=== PATIENT | female | born 1945 | race Caucasian/White ===

== ENCOUNTER 2016-06-12 14:24 | Inpatient (IN) | payer MEDICARE, MEDICAID ==
[~2016-06-12] VITALS: Ht 162.6 cm; Wt 62.1 kg
[~2016-06-12 14:24] MED LIST changes: -ACET325T38 PO; -ALBU2.5V4 NEB; -ALEN70TA47 PO; -CA C1TAB80 PO; -CARB15DR87 EACH EAR; -CHLO473M4 MM; -CLON0.5T3 PO; -CLON1TAB3 PO; -DOCU-143 PO; -GUAI480S5 PO; -HYDR-3729 PO; -HYDR28CR45 TP; -IBUP-30 PO; -LACT20SO2 PO; -LOPE-134 PO; -LORA10TA76 PO; -MAGN400O7 PO; -MENT1LOZ4 MM; -MIRT30TA6 PO; -MULT-35 PO; -NEOM28OI TP; -POLY17PO6 PO; -PROP50TA2 PO; -SALI325S2 TP; -TETR15DR74 OU; -WHEE1EAC3 MC
[2016-06-12] MEDS ORDERED: CLON0.5T3 PO (14:35)
[2016-06-12] MEDS ORDERED: PROP50TA2 PO (14:35)
[2016-06-12] MEDS ORDERED: CLON1TAB3 PO (14:35)
[2016-06-12] MEDS ORDERED: MIRT30TA6 PO (14:36)
[2016-06-12] MEDS ORDERED: ALEN70TA47 PO (14:36)
[2016-06-12] MEDS ORDERED: morphine INJ 10 MG/ML 1ML (SYR OR VIAL) IM ONE (14:45)
--- NOTE | 2016-06-12 14:45 | ED Lower Extremity ---
General Chief Complaint: Lower Extremity Stated Complaint: FALL RIGHT FOOT/ANKLE INJURY Nursing Triage Note: per staff patient fell at 0830 while trying to get into bed. patient was brought to hospital to have an outpatient xray of R ankle. patient was then instructed to come to emergency department for broken R ankle. staff report patient hasn't received anything for pain Nursing Sepsis Screen: No Definite Risk Source: patient Exam Limitations: no limitations History of Present Illness Time seen by provider: 14:43 Initial Comments To ER accompanied by [facility] staff from the x-ray department with reports of an ankle fracture. Patient slid out of her wheelchair this morning while at her [facility], [place]. They initially thought this may be sprain but they called her primary care provider Dr. Merino who recommended an x-ray. Onset: this morning Severity: moderate Pain/Injury Location: right ankle Method of Injury: fell Modifying Factors: Worse With Movement Allergies and Home Medications Allergies Coded Allergies: No Known Drug Allergies (Unverified , 07/24/12) Home Medications Alendronate Sodium 70 Mg Tablet, #4 (Reported) Clonazepam 0.5 Mg Tablet, #28 (Reported) Clonazepam 1 Mg Tablet, #28 (Reported) Hydrocodone Bit/Acetaminophen 1 Each Tablet, 1 EACH PO Q6H PRN, #20 Ref 0 Prescribed by: LISSETH CHAO on 07/24/122053 Mirtazapine 30 Mg Tablet, #28 (Reported) Propylthiouracil 50 Mg Tablet, #56 (Reported) Constitutional: see HPI EENTM: see HPI Respiratory: no symptoms reported Cardiovascular: no symptoms reported Genitourinary: no symptoms reported Musculoskeletal: see HPI Skin: no symptoms reported Psychiatric/Neurological: No Symptoms Reported Past Vsaysow-Najaiu-Mzqogi Hx Patient Social History Alcohol Use: Denies Use Recreational Drug Use: No Smoking Status: Never a Smoker Recent Foreign Travel: No Contact w/Someone Who Travel: No Recent Infectious Disease Expo: No Recent Hopitalizations: No Surgeries HX Surgeries: Yes (ankle surgery, wrist surgery) Gastrointestinal Hx Gastrointestinal Disorders: Yes Gastrointestinal Disorders: Chronic Constipation Musculoskeletal Hx Musculoskeletal Disorders: Yes Musculoskeletal Disorders: Osteoporosis Psychosocial Hx Psychiatric Problems: Yes (severe mr, ) Behavioral Health Disorders: Anxiety, Depression Family Medical History Significant Family History: No Pertinent Family Hx Physical Exam Vital Signs Vital Sign - Last 12Hours 06/12/16 14:29 Temp 98.5 Pulse 101 Resp 18 B/P (MAP) 149/102 Pulse Ox 94 O2 Delivery Room Air Capillary Refill : Less Than 3 Seconds General Appearance: WD/WN, no apparent distress HEENT: PERRL/EOMI, normal ENT inspection Neck: non-tender, full range of motion Respiratory: no respiratory distress, no accessory muscle use Gastrointestinal: non tender, soft Hips: bilateral hip non-tender, bilateral hip normal inspection, bilateral hip normal range of motion Legs: bilateral leg non-tender, bilateral leg normal inspection, bilateral leg normal range of motion Knees: bilateral knee non-tender, bilateral knee normal inspection, bilateral knee normal range of motion Ankles: right ankle pain, right ankle soft tissue tenderness, right ankle swelling, right ankle other (dorsalis pedis pulse is +2) Neurologic/Tendon: normal sensation, normal motor functions Neurologic/Psychiatric: alert, normal mood/affect, oriented x 3 Skin: normal color, warm/dry Progress/Results/Core Measures Results/Orders Lab Results Laboratory Tests Test 06/12/16 15:20 Range/Units White Blood Count 16.8 H 4.3-11.0 10^3/uL Red Blood Count 4.53 4.35-5.85 10^6/uL Hemoglobin 12.9 11.5-16.0 G/DL Hematocrit 40 35-52 % Mean Corpuscular Volume 88 80-99 FL Mean Corpuscular Hemoglobin 29 25-34 PG Mean Corpuscular Hemoglobin Concent 33 32-36 G/DL Red Cell Distribution Width 12.6 10.0-14.5 % Platelet Count 300 130-400 10^3/uL Mean Platelet Volume 11.3 H 7.4-10.4 FL Neutrophils (%) (Auto) 91 H 42-75 % Lymphocytes (%) (Auto) 4 L 12-44 % Monocytes (%) (Auto) 5 0-12 % Eosinophils (%) (Auto) 0 0-10 % Basophils (%) (Auto) 0 0-10 % Neutrophils # (Auto) 15.3 H 1.8-7.8 X 10^3 Lymphocytes # (Auto) 0.7 L 1.0-4.0 X 10^3 Monocytes # (Auto) 0.8 0.0-1.0 X 10^3 Eosinophils # (Auto) 0.0 0.0-0.3 10^3/uL Basophils # (Auto) 0.0 0.0-0.1 10^3/uL Neutrophils % (Manual) 85 % Lymphocytes % (Manual) 8 % Monocytes % (Manual) 3 % Eosinophils % (Manual) 0 % Basophils % (Manual) 0 % Band Neutrophils 4 % Blood Morphology Comment NORMAL Sodium Level 141 135-145 MMOL/L Potassium Level 5.1 H 3.6-5.0 MMOL/L Chloride Level 110 H 98-107 MMOL/L Carbon Dioxide Level 23 21-32 MMOL/L Anion Gap 8 5-14 MMOL/L Blood Urea Nitrogen 19 H 7-18 MG/DL Creatinine 0.86 0.60-1.30 MG/DL Estimat Glomerular Filtration Rate > 60 BUN/Creatinine Ratio 22 Glucose Level 115 H 70-105 MG/DL Calcium Level 8.9 8.5-10.1 MG/DL Total Bilirubin 0.4 0.1-1.0 MG/DL Aspartate Amino Transf (AST/SGOT) 19 5-34 U/L Alanine Aminotransferase (ALT/SGPT) 12 0-55 U/L Alkaline Phosphatase 62 40-136 U/L Total Protein 6.7 6.4-8.2 G/DL Albumin 4.1 3.2-4.5 G/DL My Orders Orders - KEYUR REN [employer] Morphine Injection (Morphine Injection (06/12/16 14:45) Fentanyl Injection (Sublimaze Injection (06/12/16 15:30) Midazolam Injection (Versed Injection) (06/12/16 15:30) Saline Lock/Iv-Start (06/12/16 15:29) Cbc With Automated Diff (06/12/16 15:29) Comprehensive Metabolic Panel (06/12/16 15:29) Ua Culture If Indicated (06/12/16 15:29) Ekg Tracing (06/12/16 15:29) Manual Differential (06/12/16 15:20) Midazolam Injection (Versed Injection) (06/12/16 15:36) Fentanyl Injection (Sublimaze Injection (06/12/16 16:00) Midazolam Injection (Versed Injection) (06/12/16 16:00) Fentanyl Injection (Sublimaze Injection (06/12/16 16:15) Midazolam Injection (Versed Injection) (06/12/16 16:15) Ankle, Right, 3 Views (06/12/16 16:01) Medications Given in ED Current Medications Medications Dose Ordered Sig/Servando Route Start Time Stop Time Status Last Admin Dose Admin Fentanyl Citrate 50 mcg ONCE ONCE IVP 06/12/16 15:30 06/12/16 15:31 DC 06/12/16 15:47 50 MCG Fentanyl Citrate 50 mcg ONCE PRN IVP 06/12/16 16:00 06/12/16 15:55 50 MCG Midazolam HCl 1 mg ONCE ONCE IVP 06/12/16 16:15 06/12/16 16:16 DC 06/12/16 15:55 1 MG Midazolam HCl 5 mg STK-MED ONCE .ROUTE 06/12/16 15:36 06/12/16 15:40 DC 06/12/16 15:47 1 MG Morphine Sulfate 6 mg ONCE ONCE IM 06/12/16 14:45 06/12/16 14:46 DC 06/12/16 14:53 6 MG Vital Signs/I&O Vital Sign - Last 12Hours 06/12/16 14:29 Temp 98.5 Pulse 101 Resp 18 B/P (MAP) 149/102 Pulse Ox 94 O2 Delivery Room Air Blood Pressure Mean: 118 Diagnostic Imaging Diagonstic Imaging: Xray Comments NAME: RAFAELA TURNER [facility] REC#: [id number] PT STATUS: REG ER : 1945 PHYSICIAN: KEYUR REN APRN ADMIT DATE: 06/12/16/ER Draft Date of Exam:06/12/16 ANKLE, RIGHT, 3 VIEWS Three views of the right ankle. INDICATION: Ankle fracture status post closed reduction. FINDINGS: There is improved alignment of oblique fracture of the distal fibula with resolution of the previously seen angulation. There is extension of the fracture to the ankle joint. Medial malleolar and posterior malleolar fractures are also seen with minimal displacement at the medial malleolus. No radiopaque foreign body is seen. There is near-anatomic configuration of the ankle mortise. IMPRESSION: Improved alignment and resolution of the angulation seen in the distal fibula fracture after closed reduction. Posterior and medial malleolar fractures are again seen with no significant displacement. Dictated on workstation # [id number] Dict: 06/12/16 1619 Trans: 06/12/16 1628 VICKIE [id number] Interpreted by: MELLO MOYER MD Electronically signed by: Departure Communication Progress Notes 1518-I discussed the images with Dr. Bodns who then discussed the pictures telephonically with Dr. Mary romero. They would like me to reduce the ankle, splint, admit to the hospitalist and Dr. Rainey will operate tomorrow. 1602-patient was very tearful and had a tendency to fever for foot laterally. She was given 2 mg of Versed to help relax and a total of 100 g of fentanyl and 2 separate doses for pain control. Traction was applied to the foot with some medial pressure was put in a stirrup and posterior short-leg splint. Impression Impression: Primary Impression: Displaced bimalleolar fracture of right ankle Disposition: ADMITTED INPATIENT Condition: Stable Decision to Admit Reason: Admit from ER (General) Decision to Admit/Date: Jun 12, 2016 Time/Decision to Admit Time: 16:03 Departure-Patient Inst. Referrals: DIANA MERINO MD (PCP/Family) Primary Care Physician KEYUR REN APRN Jun 12, 2016 14:45
[2016-06-12] MEDS ORDERED: fentaNYL INJECTION 100 MCG/2 ML AMP IVP ONE ×2 (15:30→16:15)
[2016-06-12] MEDS ORDERED: MIDAZOLAM 10 MG/2 ML (VERSED) VIAL IVP ONE ×2 (15:30→16:15)
[2016-06-12 15:35] LABS: BASOPHILS % (AUTO) 0 % (0-10); EOSINOPHILS % (AUTO) 0 % (0-10); LYMPHOCYTES # (AUTO) 0.7 X 10^3 (1.0-4.0); LYMPHOCYTES % (AUTO) 4 % (12-44); MEAN CORPUSCULAR HEMOGLOBIN 29 PG (25-34); MEAN CORPUSCULAR HGB CONC 33 G/DL (32-36); MEAN CORPUSCULAR VOLUME 88 FL (80-99); MEAN PLATELET VOLUME 11.3 FL (7.4-10.4); MONOCYTES # (AUTO) 0.8 X 10^3 (0.0-1.0); MONOCYTES % (AUTO) 5 % (0-12); NEUTROPHILS # (AUTO) 15.3 X 10^3 (1.8-7.8); NEUTROPHILS % (AUTO) 91 % (42-75); PLATELET COUNT 300 10^3/uL (130-400); RED BLOOD COUNT 4.53 10^6/uL (4.35-5.85); RED CELL DISTRIBUTION WIDTH 12.6 % (10.0-14.5); WHITE BLOOD COUNT 16.8 10^3/uL (4.3-11.0)
[2016-06-12] MEDS ORDERED: MIDAZOLAM 5 MG/5 ML (VERSED) VIAL ONE (15:36)
[2016-06-12 15:51] LABS: ALANINE AMINOTRANSFERASE 12 U/L (0-55); ALBUMIN 4.1 G/DL (3.2-4.5); ANION GAP 8 MMOL/L (5-14); ASPARTATE AMINO TRANSFERASE 19 U/L (5-34); BILIRUBIN,TOTAL 0.4 MG/DL (0.1-1.0); BLOOD UREA NITROGEN 19 MG/DL (7-18); BUN/CREATININE RATIO 22; CALCIUM 8.9 MG/DL (8.5-10.1); CARBON DIOXIDE 23 MMOL/L (21-32); CHLORIDE 110 MMOL/L (98-107); CREATININE SERUM 0.86 MG/DL (0.60-1.30); GFR ESTIMATED > 60; GLUCOSE 115 MG/DL (70-105); POTASSIUM 5.1 MMOL/L (3.6-5.0); SODIUM 141 MMOL/L (135-145); TOTAL PROTEIN 6.7 G/DL (6.4-8.2)
[2016-06-12 15:52] LABS: BAND NEUTROPHILS 4 %; BASOPHILS % (MANUAL) 0 %; EOSINOPHILS % (MANUAL) 0 %; LYMPHOCYTES % (MANUAL) 8 %; NEUTROPHILS % (MANUAL) 85 %
[2016-06-12] MEDS ORDERED: fentaNYL INJECTION 100 MCG/2 ML AMP IVP PRN (16:00)
[2016-06-12] MEDS ORDERED: MIDAZOLAM 5 MG/5 ML (VERSED) VIAL IVP ONE (16:00)
--- NOTE | 2016-06-12 16:29 | Diagnostic Imaging Report ---
Three views of the right ankle. INDICATION: Ankle fracture status post closed reduction. FINDINGS: There is improved alignment of oblique fracture of the distal fibula with resolution of the previously seen angulation. There is extension of the fracture to the ankle joint. Medial malleolar and posterior malleolar fractures are also seen with minimal displacement at the medial malleolus. No radiopaque foreign body is seen. There is near-anatomic configuration of the ankle mortise. IMPRESSION: Improved alignment and resolution of the angulation seen in the distal fibula fracture after closed reduction. Posterior and medial malleolar fractures are again seen with no significant displacement. Dictated by: Dictated on workstation # [id number]
[2016-06-12 17:45] VITALS: BP 146/91
[2016-06-12] MEDS ORDERED: CATHETER FLUSH 10 ML SYR IV PRN (18:00)
[2016-06-12] MEDS: NS IV 1000 ML 1,000 ML IV SCH (19:03)
[2016-06-12 19:50] VITALS: BP 128/79
[2016-06-12] MEDS ORDERED: ACETAMINOPHEN 325 MG TABLET/CAPLET (TYLENOL) PO PRN (21:15)
[2016-06-13 00:10] VITALS: BP 150/79
[2016-06-13 04:36] VITALS: BP 125/70
[2016-06-13] MEDS: NS IV 1000 ML 1,000 ML IV SCH ×2 (04:55→14:05)
[2016-06-13] MEDS: fentaNYL INJECTION 100 MCG/2 ML AMP IV PRN ×2 (08:20→12:38)
[2016-06-13 08:27] VITALS: BP 137/78
[2016-06-13] MEDS ORDERED: LORA10TA76 PO (08:40)
[2016-06-13] MEDS ORDERED: ACET325T38 PO (08:40)
[2016-06-13] MEDS ORDERED: MULT-35 PO (08:40)
[2016-06-13] MEDS ORDERED: POLY17PO6 PO (08:40)
[2016-06-13] MEDS ORDERED: TETR15DR74 OU (08:40)
[2016-06-13] MEDS ORDERED: CA C1TAB80 PO (08:40)
[2016-06-13] MEDS ORDERED: IBUP-30 PO (08:40)
[2016-06-13] MEDS ORDERED: SALI325S2 TP (08:40)
[2016-06-13] MEDS ORDERED: MENT1LOZ4 MM (08:40)
[2016-06-13] MEDS ORDERED: DOCU-143 PO (08:40)
[2016-06-13] MEDS ORDERED: CHLO473M4 MM (08:40)
[2016-06-13] MEDS ORDERED: GUAI480S5 PO (08:40)
[2016-06-13] MEDS ORDERED: LOPE-134 PO (08:40)
[2016-06-13] MEDS ORDERED: NEOM28OI TP (08:40)
[2016-06-13] MEDS ORDERED: MAGN400O7 PO (08:40)
[2016-06-13] MEDS ORDERED: HYDR28CR45 TP (08:40)
[2016-06-13] MEDS ORDERED: ALBU2.5V4 NEB (08:40)
[2016-06-13] MEDS ORDERED: CARB15DR87 EACH EAR (08:40)
[2016-06-13] MEDS ORDERED: MILK OF MAGNESIA 400 MG/5 ML 30 ML UDC PO PRN (10:00)
[2016-06-13] MEDS ORDERED: HYDROCORTISONE 1% CREAM 30 GM TUBE TP PRN (10:00)
[2016-06-13] MEDS ORDERED: RT-ALBUTEROL SULF 2.5 MG/3 ML PRE-MIX VIAL IH PRN (10:00)
[2016-06-13] MEDS ORDERED: NEO/POLY/BAC (NEOSPORIN) OINT 15 GM TUBE TP PRN (10:00)
[2016-06-13] MEDS ORDERED: guaiFENesin/DM (ROBITUSSIN DM) 10 ML UDC PO PRN (10:00)
[2016-06-13] MEDS ORDERED: TETRAHYDROZOLINE (VISINE) 0.05% 15 ML BTL OU PRN (10:00)
[2016-06-13] MEDS ORDERED: CARBAM PEROX/GLYC/PROP 15 ML DROPS (DEBROX) EACH EAR PRN (10:00)
--- NOTE | 2016-06-13 10:25 | History & Physical-Hospitalist ---
HPI History of Present Illness: HPI/Chief Complaint CC: Right ankle fracture following a fall HPI: This is a 70yoWF pt of Dr. Merino that has MR, severe anxiety, chronic constipation and hyperthyroidism with osteoporosis that presents after a fall out of her wheel chair and subsequent right ankle swelling. Pt was brought to ER and found to have displaced ankle fracture set to be repaired by Dr. Rainey today. Patient Interview: Dr. Rolon informs pt that she will be monitoring pts heart and lungs. Pt is with her telephonic case manager and sister today. Physical exam stable. Scribed by Juan José Jeff under the direct supervision of Dr. Rolon. Source: patient Exam Limitations: physical impairment Date Seen 06/13/16 Attending Physician Angela Rolon Rachel L MD Referring Physician Date of Admission Jun 12, 2016 at 16:46 Home Medications & Allergies Home Medications Reviewed patient Home Medication Reconciliation Form Allergies Allergies Coded Allergies No Known Drug Allergies (Unverified07/24/12) Past Yqhbupw-Xgxipi-Vgpwtx Hx Patient Social History Marrital Status: single Employed/Student: unemployed Alcohol Use: Denies Use Recreational Drug Use: No Smoking Status: Never a Smoker Physical Abuse Screen: No Sexual Abuse: No Recent Foreign Travel: No Contact w/other who traveled: No Recent Hopitalizations: No Recent Infectious Disease Expo: No Seasonal Allergies Seasonal Allergies: No Surgeries HX Surgeries: Yes (ankle surgery, wrist surgery) Respiratory Hx Respiratory Disorders: No Cardiovascular Hx Cardiovascular Disorders: No Neurological Hx Neurological Disorders: Yes Neurological Disorders: Developmental Disorder Gastrointestinal Hx Gastrointestinal Disorders: Yes Gastrointestinal Disorders: Chronic Constipation Musculoskeletal Hx Musculoskeletal Disorders: Yes Musculoskeletal Disorders: Osteoporosis Psychosocial Hx Psychiatric Problems: Yes (severe mr, ) Behavioral Health Disorders: Anxiety, Depression Family Medical History Significant Family History: No Pertinent Family Hx Family Hx: Arthritis 19 FATHER G8 SISTER Cardiovascular disease 19 MOTHER Diabetes mellitus 19 MOTHER Hypertension G8 SISTER Review of Systems Constitutional: see HPI EENTM: no symptoms reported Respiratory: no symptoms reported Cardiovascular: no symptoms reported Gastrointestinal: no symptoms reported Genitourinary: no symptoms reported Musculoskeletal: joint pain Skin: no symptoms reported All Other Systems Reviewed Negative Unless Noted: Yes Physical Exam Physical Exam Vital Signs Vital Sign - Last 12Hours 06/12/16 14:29 Temp 98.5 Pulse 101 Resp 18 B/P (MAP) 149/102 Pulse Ox 94 O2 Delivery Room Air Capillary Refill : Less Than 3 SecondsLess Than 3 Seconds General Appearance: No Apparent Distress, WD/WN, Anxious Eyes: Bilateral Eye Normal Inspection, Bilateral Eye PERRL HEENT: PERRL/EOMI, Normal ENT Inspection, Pharynx Normal Neck: Full Range of Motion, Normal Inspection, Non Tender, Supple, Carotid Bruit Respiratory: Chest Non Tender, Lungs Clear, Normal Breath Sounds, No Accessory Muscle Use, No Respiratory Distress Cardiovascular: Regular Rate, Rhythm, No Edema, No Gallop, No JVD, No Murmur, Normal Peripheral Pulses Gastrointestinal: Normal Bowel Sounds, No Organomegaly, No Pulsatile Mass, Non Tender, Soft Back: Normal Inspection, No CVA Tenderness, No Vertebral Tenderness Extremity: Normal Capillary Refill, Normal Inspection, Normal Range of Motion ( except right ankle ), Non Tender, No Calf Tenderness, No Pedal Edema Neurologic/Psychiatric: Alert, Oriented x3, No Motor/Sensory Deficits, Normal Mood/Affect Skin: Normal Color, Warm/Dry Lymphatic: No Adenopathy Results Results/Procedures Lab Laboratory Tests 06/12/16 15:20 Assessment/Plan Admission Diagnosis Assessment: Right ankle fracture following fall MR Severe anxiety Chronic constipation Hyperthyroidism Osteoporosis Assessment and Plan Plan: Surgery this afternoon to be performed by Dr. Rainey since surgical benefits outweigh medical risks Reconcile all home meds Monitor closely Clinical Quality Measures DVT/VTE Risk/Contraindication: Risk Factor Score Per Nursin RFS Level Per Nursing on Admit: 4+=Very High ANGELA ROLON DO Jun 13, 2016 10:25
[2016-06-13] MEDS ORDERED: CHLORASEPTIC LOZENGE MM PRN (11:30)
[2016-06-13 12:00] VITALS: BP 145/87
[2016-06-13] MEDS ORDERED: BUP/EPI 0.5% 1:200,000 (SENSORCAINE) 30 ML VIAL ONE (12:02)
[2016-06-13] MEDS: CALCIUM CARB + VIT D 600 MG (CALCARB + D) TAB PO SCH ×2 (12:03→16:28)
[2016-06-13] MEDS ORDERED: BUPIVACAINE 0.5% 30 ML (SENSORCAINE) VIAL ONE (12:03)
[2016-06-13] MEDS ORDERED: DEXAMETHASONE PF 10 MG/ML (DECADRON) VIAL ONE (12:57)
[2016-06-13] MEDS ORDERED: fentaNYL INJECTION 100 MCG/2 ML AMP ONE ×2 (12:57→14:52)
[2016-06-13] MEDS ORDERED: MIDAZOLAM 2 MG/2 ML (VERSED) VIAL ONE ×3 (12:57→14:02)
[2016-06-13] MEDS ORDERED: ONDANSETRON 4 MG/2 ML (SDV) Z0FRAN ONE ×2 (12:57→16:19)
[2016-06-13] MEDS ORDERED: SEVOFLURANE (ULTANE) 15 ML INHAL SOLN ONE ×2 (12:57→16:55)
[2016-06-13] MEDS ORDERED: LACTATED RINGERS 1,000 ML IV ONE ×2 (12:57→16:05)
[2016-06-13] MEDS ORDERED: LIDOCAINE PF 2% 10 ML (XYLOCAINE) AMP ONE (12:57)
[2016-06-13] MEDS ORDERED: proPOfol 200 MG/20 ML (DIPRIVAN) VIAL IV ONE (12:57)
[2016-06-13] MEDS: LACTATED RINGERS 1,000 ML IV SCH ×2 (13:20→15:55)
[2016-06-13] MEDS ORDERED: ROPIVACAINE 5MG/ML 30ML VIAL ONE (13:32)
[2016-06-13] MEDS ORDERED: ceFAZolin 1,000 MG (ANCEF) VIAL ONE (14:38)
--- NOTE | 2016-06-13 14:38 | Progress Note-Pre Operative ---
Pre-Operative Progress Note H&P Reviewed The H&P was reviewed, patient examined and no changes noted. Date H&P Reviewed: Jun 13, 2016 Time H&P Reviewed: 14:38 Pre-Operative Diagnosis: Triml Ankle Fracture ANDREA TENORIO DPM Jun 13, 2016 14:38
[2016-06-13] MEDS ORDERED: ceFAZolin INJECTION 2,000 MG in NS (IVPB) 50 ML IVP NR (15:00)
[2016-06-13] MEDS ORDERED: morphine INJ 10 MG/ML 1ML (SYR OR VIAL) IVP PRN (17:00)
[2016-06-13] MEDS ORDERED: ONDANSETRON 4 MG/2 ML (SDV) Z0FRAN IVP PRN (17:00)
--- NOTE | 2016-06-13 17:11 | Diagnostic Imaging Report ---
INDICATION: Right ankle fractures. FINDINGS: Fluoroscopic views are obtained in surgery during ORIF of right ankle fractures. Plate and screws are seen in the distal tibia and fibula with anatomic alignment of the distal tibial and fibular fractures. 124.5 seconds of fluoroscopy time was used. IMPRESSION: Intraoperative views obtained during ORIF of ankle fractures on the right side show anatomic alignment. Dictated by: Dictated on workstation # [id number]
[2016-06-13] MEDS: fentaNYL INJECTION 100 MCG/2 ML AMP IVP PRN ×3 (17:21→17:46)
[2016-06-13 18:15] VITALS: BP 146/90
[2016-06-13] MEDS: clonazePAM 1 MG (KlonoPIN) TAB PO SCH (21:28)
[2016-06-13] MEDS: CHLORHEXIDINE 0.12% SOLN 15 ML (PERIDEX) UDC MM SCH (21:28)
[2016-06-13] MEDS: PROPYLTHIOURACIL 50 MG PO SCH (21:28)
[2016-06-13] MEDS: MIRTAZAPINE 15 MG (REMERON) TAB PO SCH (21:28)
[2016-06-13 21:30] VITALS: BP 147/79
[2016-06-13] MEDS: ceFAZolin INJECTION 1,000 MG in NS (IVPB) 50 ML IV SCH (22:45)
[2016-06-14] VITALS: BP 143/89
[2016-06-14 04:00] VITALS: BP 115/73
[2016-06-14] MEDS: ceFAZolin INJECTION 1,000 MG in NS (IVPB) 50 ML IV SCH (06:19)
[2016-06-14] MEDS: CALCIUM CARB + VIT D 600 MG (CALCARB + D) TAB PO SCH ×4 (06:19→18:36)
[2016-06-14] MEDS: MULTIVIT W/MINERALS TAB (THERAGRAN M) PO SCH (06:19)
[2016-06-14] MEDS: POLYETHYLENE GLYCOL 17 GM (MIRALAX) PACK PO PRN ×2 (06:20→20:25)
[2016-06-14] MEDS: DOCUSATE SODIUM 100 MG (COLACE) CAP PO SCH (08:22)
[2016-06-14] MEDS: LORATADINE (CLARITIN) 10 MG TAB PO SCH (08:22)
[2016-06-14] MEDS: clonazePAM 0.5 MG (KlonoPIN) TAB PO SCH (08:22)
[2016-06-14] MEDS: PROPYLTHIOURACIL 50 MG PO SCH ×2 (08:22→20:25)
[2016-06-14] MEDS: ACETAMINOPHEN 325 MG TABLET/CAPLET (TYLENOL) PO PRN ×3 (08:22→20:25)
[2016-06-14 08:33] VITALS: BP 147/76
[2016-06-14] MEDS: NS IV 1000 ML 1,000 ML IV SCH ×2 (09:15)
--- NOTE | 2016-06-14 09:43 | Anesthesia-General Post-Op ---
General Patient Condition Mental Status/LOC: Same as Preop Cardiovascular: Satisfactory Nausea/Vomiting: Absent Respiratory: Satisfactory Pain: Controlled Complications: Absent Post Op Complications Complications None Follow Up Care/Instructions Patient Instructions None needed. Anesthesia/Patient Condition Patient Condition Patient is doing well, no complaints, stable vital signs, no apparent adverse anesthesia problems. No complications reported per nursing. MIN SCHNEIDER CRNA Jun 14, 2016 09:43
[2016-06-14] MEDS ORDERED: NON-FORMULARY MEDICATION 1 EA EA (Alendronate Sodium 70 MG) PO SCH (10:00)
[2016-06-14 11:58] LABS: BASOPHILS % (AUTO) 0 % (0-10); EOSINOPHILS # (AUTO) 0.1 10^3/uL (0.0-0.3); EOSINOPHILS % (AUTO) 1 % (0-10); LYMPHOCYTES # (AUTO) 1.5 X 10^3 (1.0-4.0); LYMPHOCYTES % (AUTO) 14 % (12-44); MEAN CORPUSCULAR HEMOGLOBIN 29 PG (25-34); MEAN CORPUSCULAR HGB CONC 32 G/DL (32-36); MEAN CORPUSCULAR VOLUME 89 FL (80-99); MEAN PLATELET VOLUME 11.5 FL (7.4-10.4); MONOCYTES # (AUTO) 1.1 X 10^3 (0.0-1.0); MONOCYTES % (AUTO) 10 % (0-12); NEUTROPHILS % (AUTO) 75 % (42-75); PLATELET COUNT 224 10^3/uL (130-400); RED CELL DISTRIBUTION WIDTH 12.9 % (10.0-14.5); WHITE BLOOD COUNT 10.7 10^3/uL (4.3-11.0)
[2016-06-14 12:00] VITALS: BP 131/71
[2016-06-14 12:17] LABS: ALANINE AMINOTRANSFERASE 14 U/L (0-55); ALBUMIN 3.4 G/DL (3.2-4.5); ANION GAP 9 MMOL/L (5-14); ASPARTATE AMINO TRANSFERASE 37 U/L (5-34); BILIRUBIN,TOTAL 0.5 MG/DL (0.1-1.0); BLOOD UREA NITROGEN 13 MG/DL (7-18); BUN/CREATININE RATIO 16; CALCIUM 8.3 MG/DL (8.5-10.1); CARBON DIOXIDE 21 MMOL/L (21-32); CHLORIDE 111 MMOL/L (98-107); CREATININE SERUM 0.81 MG/DL (0.60-1.30); GFR ESTIMATED > 60; GLUCOSE 109 MG/DL (70-105); POTASSIUM 3.7 MMOL/L (3.6-5.0); SODIUM 141 MMOL/L (135-145); TOTAL PROTEIN 5.9 G/DL (6.4-8.2)
--- NOTE | 2016-06-14 12:24 | Progress Note-Hospitalist ---
Progress Note HPI/CC on Admission CC: Right ankle fracture following a fall HPI: This is a 70yoWF pt of Dr. Merino that has MR, severe anxiety, chronic constipation and hyperthyroidism with osteoporosis that presents after a fall out of her wheel chair and subsequent right ankle swelling. Pt was brought to ER and found to have displaced ankle fracture set to be repaired by Dr. Rainey today. Patient Interview: Dr. Rolon informs pt that she will be monitoring pts heart and lungs. Pt is with her rn case manager and sister today. Physical exam stable. Scribed by Juan José Jeff under the direct supervision of Dr. Rolon. Progress Notes/Assess & Plan Date Seen 06/14/16 Admission Dx/Process Assessment: Right ankle fracture following fall MR Severe anxiety Chronic constipation Hyperthyroidism Osteoporosis Diagonsis/Assessment & Plan Patient doing well and eating lunch with and rescue fire fighter crash fire No BM yet Pain is controlled Surgery went without complications No fever, vital signs stable, pleasant, anxious Regular rate and rhythm, clear to auscultation bilaterally No edema Laboratory Tests 06/14/16 11:40 Assessment: Right ankle fracture following fall POD # 1 MR Severe anxiety Chronic constipation Hyperthyroidism Osteoporosis Postop constipation Plan: Continue all home meds Monitor closely check labs in a.m. Lactulose NICOLE ROLON DO Jun 14, 2016 12:24
[2016-06-14] MEDS: IBUPROFEN TABLET 200 MG TAB PO PRN (13:08)
[2016-06-14] MEDS: LACTULOSE SYRUP 10GM/15ML (ENULOSE) 30ML UDC PO SCH ×3 (13:15→20:28)
[2016-06-14 15:41] VITALS: BP 131/71
[2016-06-14 19:10] VITALS: BP 148/76
[2016-06-14] MEDS: CHLORHEXIDINE 0.12% SOLN 15 ML (PERIDEX) UDC MM SCH (20:24)
[2016-06-14] MEDS: MIRTAZAPINE 15 MG (REMERON) TAB PO SCH (20:25)
[2016-06-14] MEDS: clonazePAM 1 MG (KlonoPIN) TAB PO SCH (20:28)
[2016-06-15] VITALS: BP 156/85
[2016-06-15 04:00] VITALS: BP 155/87
[2016-06-15 05:09] LABS: BASOPHILS % (AUTO) 0 % (0-10); EOSINOPHILS # (AUTO) 0.2 10^3/uL (0.0-0.3); EOSINOPHILS % (AUTO) 2 % (0-10); LYMPHOCYTES # (AUTO) 1.2 X 10^3 (1.0-4.0); LYMPHOCYTES % (AUTO) 13 % (12-44); MEAN CORPUSCULAR HEMOGLOBIN 29 PG (25-34); MEAN CORPUSCULAR HGB CONC 32 G/DL (32-36); MEAN CORPUSCULAR VOLUME 89 FL (80-99); MEAN PLATELET VOLUME 11.8 FL (7.4-10.4); MONOCYTES # (AUTO) 0.8 X 10^3 (0.0-1.0); MONOCYTES % (AUTO) 8 % (0-12); NEUTROPHILS # (AUTO) 6.9 X 10^3 (1.8-7.8); NEUTROPHILS % (AUTO) 76 % (42-75); PLATELET COUNT 225 10^3/uL (130-400); RED BLOOD COUNT 3.69 10^6/uL (4.35-5.85); WHITE BLOOD COUNT 9.1 10^3/uL (4.3-11.0)
[2016-06-15 05:34] LABS: ALANINE AMINOTRANSFERASE 13 U/L (0-55); ALBUMIN 3.3 G/DL (3.2-4.5); ANION GAP 8 MMOL/L (5-14); ASPARTATE AMINO TRANSFERASE 36 U/L (5-34); BILIRUBIN,TOTAL 0.7 MG/DL (0.1-1.0); BLOOD UREA NITROGEN 9 MG/DL (7-18); BUN/CREATININE RATIO 13; CALCIUM 8.1 MG/DL (8.5-10.1); CARBON DIOXIDE 21 MMOL/L (21-32); CHLORIDE 112 MMOL/L (98-107); CREATININE SERUM 0.72 MG/DL (0.60-1.30); GFR ESTIMATED > 60; GLUCOSE 106 MG/DL (70-105); POTASSIUM 3.6 MMOL/L (3.6-5.0); SODIUM 141 MMOL/L (135-145); TOTAL PROTEIN 5.8 G/DL (6.4-8.2)
[2016-06-15] MEDS: CALCIUM CARB + VIT D 600 MG (CALCARB + D) TAB PO SCH ×3 (06:06→17:25)
[2016-06-15] MEDS: MULTIVIT W/MINERALS TAB (THERAGRAN M) PO SCH (06:06)
[2016-06-15 08:32] VITALS: BP 113/70
--- NOTE | 2016-06-15 08:47 | Podiatry Progress Note ---
Standard Progress Note Progress Notes/Assess & Plan Progress/Assessment & Plan Patient seen at [facility]. Nonverbal Final Diagnosis RLE- dressing clean dry intact mild strikethrough, NV intact, calves supple POD #2 ORIF Right Silvano ankle fracture -NWB RLE -Ice and Elevate -Okay for D/C to rehab per Podiatry, Follow up as out patient in 2 weeks. ANDREA BANUELOS DPM Jun 15, 2016 08:47
[2016-06-15] MEDS: CHLORHEXIDINE 0.12% SOLN 15 ML (PERIDEX) UDC MM SCH ×2 (08:59→20:38)
[2016-06-15] MEDS: LORATADINE (CLARITIN) 10 MG TAB PO SCH (08:59)
[2016-06-15] MEDS: PROPYLTHIOURACIL 50 MG PO SCH ×2 (08:59→20:38)
[2016-06-15] MEDS: DOCUSATE SODIUM 100 MG (COLACE) CAP PO SCH (08:59)
[2016-06-15] MEDS: clonazePAM 0.5 MG (KlonoPIN) TAB PO SCH (08:59)
[2016-06-15] MEDS: ACETAMINOPHEN 325 MG TABLET/CAPLET (TYLENOL) PO PRN (09:00)
[2016-06-15] MEDS: LACTULOSE SYRUP 10GM/15ML (ENULOSE) 30ML UDC PO SCH ×2 (09:00→20:38)
--- NOTE | 2016-06-15 13:08 | Progress Note-Hospitalist ---
Progress Note HPI/CC on Admission CC: Right ankle fracture following a fall HPI: This is a 70yoWF pt of Dr. Merino that has MR, severe anxiety, chronic constipation and hyperthyroidism with osteoporosis that presents after a fall out of her wheel chair and subsequent right ankle swelling. Pt was brought to ER and found to have displaced ankle fracture set to be repaired by Dr. Rainey today. Patient Interview: Dr. Rolon informs pt that she will be monitoring pts heart and lungs. Pt is with her case finisher and sister today. Physical exam stable. Scribed by Juan José Jeff under the direct supervision of Dr. Rolon. Progress Notes/Assess & Plan Date Seen 06/15/16 Admission Dx/Process Assessment: Right ankle fracture following fall MR Severe anxiety Chronic constipation Hyperthyroidism Osteoporosis Diagonsis/Assessment & Plan Patient doing well and eating lunch with cyanide pot tender Met her sister + BM Pain is controlled DC planned for tomorrow No fever, vital signs stable, pleasant, anxious Regular rate and rhythm, clear to auscultation bilaterally No edema Assessment: Right ankle fracture following fall POD # 2 MR Severe anxiety Chronic constipation Hyperthyroidism Osteoporosis Postop constipation resolved Plan: DC thursday NICOLE ROLON DO Jun 15, 2016 13:08
[2016-06-15] MEDS: IBUPROFEN TABLET 200 MG TAB PO PRN (14:14)
[2016-06-15 15:55] VITALS: BP 148/79
[2016-06-15] MEDS: clonazePAM 1 MG (KlonoPIN) TAB PO SCH (20:38)
[2016-06-15] MEDS: MIRTAZAPINE 15 MG (REMERON) TAB PO SCH (20:38)
[2016-06-15 23:32] VITALS: BP 126/59
[2016-06-16] MEDS: CALCIUM CARB + VIT D 600 MG (CALCARB + D) TAB PO SCH ×2 (06:37→12:05)
[2016-06-16] MEDS: MULTIVIT W/MINERALS TAB (THERAGRAN M) PO SCH (06:37)
[2016-06-16 08:00] VITALS: BP 136/73
[2016-06-16] MEDS: clonazePAM 0.5 MG (KlonoPIN) TAB PO SCH (08:12)
[2016-06-16] MEDS: PROPYLTHIOURACIL 50 MG PO SCH (08:12)
[2016-06-16] MEDS: LACTULOSE SYRUP 10GM/15ML (ENULOSE) 30ML UDC PO SCH (08:12)
[2016-06-16] MEDS: DOCUSATE SODIUM 100 MG (COLACE) CAP PO SCH (08:12)
[2016-06-16] MEDS: LORATADINE (CLARITIN) 10 MG TAB PO SCH (08:12)
[2016-06-16] MEDS: CHLORHEXIDINE 0.12% SOLN 15 ML (PERIDEX) UDC MM SCH (08:14)
--- NOTE | 2016-06-16 09:51 | Discharge Summary-Hospitalist ---
Diagnosis/Chief Complaint Date of Admission Jun 12, 2016 at 16:46 Date of Discharge Admission Diagnosis Assessment: Right ankle fracture following fall MR Severe anxiety Chronic constipation Hyperthyroidism Osteoporosis Discharge Diagnosis Assessment: Right ankle fracture following fall POD # 3 MR Severe anxiety Chronic constipation Hyperthyroidism Osteoporosis Postop constipation resolved Plan: DC today Reason Hospital Visit/Course CC: Right ankle fracture following a fall HPI: This is a 70yoWF pt of Dr. Merino that has MR, severe anxiety, chronic constipation and hyperthyroidism with osteoporosis that presents after a fall out of her wheel chair and subsequent right ankle swelling. Pt was brought to ER and found to have displaced ankle fracture set to be repaired by Dr. Rainey today. Patient Interview: Dr. Rolon informs pt that she will be monitoring pts heart and lungs. Pt is with her case technician and sister today. Physical exam stable. Scribed by Juan José Jeff under the direct supervision of Dr. Rolon. Note from 06/16/16: Patient had an uneventful weekend and pain is controlled Ready for discharge Will evaluate assistive device needs and then discharge No fever, vital signs stable, pleasant, anxious Clear to auscultation bilaterally Hospital course: Patient had an uneventful hospital course she was admitted for ankle fracture had that repaired in an uncomplicated manner and she was maintained on inpatient status to monitor for pain due to mental retardation and bowel movement regimen was initiated with good results and overall was ready for discharge back to [place] under skilled therapy with close follow-up with Dr. Rainey. Discharge Summary Discharge Physical Examination Allergies: Coded Allergies: No Known Drug Allergies (Unverified , 07/24/12) Vitals & I&Os Vital Signs Date Time Temp Pulse Resp B/P (MAP) Pulse Ox O2 Delivery O2 Flow Rate FiO2 06/16/16 09:00 96 Room Air 06/16/16 08:00 99.7 88 20 136/73 Hospital Course Labs (last 24 hrs) Microbiology 06/13/16 MRSA Screen - Final, Complete MRSA not isolated Discharge Home Medications: Active Scripts Active Reported Imodium A-D (Loperamide HCl) 2 Mg Tablet PO UD PRN TAKE 2 TABS AFTER 1ST WATERY STOOL AND 1 TAB AFTER EACH WATERY STOOL THEREAFTER, MAX 4 DOSES/24 HOURS. Q-Tussin Dm Syrup (Guaifenesin/Dextromethorphan) 473 Ml Syrup 10 Ml PO Q4H PRN Tylenol (Acetaminophen) 325 Mg Tablet 650 Mg PO Q6H PRN Miralax (Polyethylene Glycol 3350) 17 Gm Powd.pack 17 Gm PO BID PRN Milk of Magnesia (Magnesium Hydroxide) 400 Mg/5 Ml Oral.susp 30 Ml PO BID PRN Advil (Ibuprofen) 200 Mg Tablet 400 Mg PO Q6H PRN Cough Drops (Menthol/Herbal Drugs) 1 Each Lozenge 1 Kevin MM Q1H PRN UP TO 8 DROPS PER 24 HOURS Triple Antibiotic Ointment (Neomycin Carrington/Bacitrac Zn/Poly) 28 Gm Oint...g. TP BID PRN Visine (Tetrahydrozoline HCl) 15 Ml Drops 2 Drops OU QID PRN Selsun Blue (Salicylic Acid) 325 Ml Shampoo TP SUTUTH Cortisone (Hydrocortisone) 28 Gm Cream..g. TP TID PRN Debrox (Carbamide Peroxide) 15 Ml Drops 10 Drops EACH EAR DAILY PRN 3 Days USE 3 DAYS THEN IRRIGATE Peridex (Chlorhexidine Gluconate) 473 Ml Mouthwash 15 Ml MM BID SWISH AND SPIT AFTER BREAKFAST AND BEFORE BEDTIME Albuterol Sulfate 2.5 Mg/3 Ml Vial.neb 2.5 Mg NEB Q6H PRN Viactiv Soft Chew Tablet (Ca Carbonate/Vitamin D3/Vit K) 1 Each Tab.chew 1 Tab.chew PO TID Daily Multiple Vitamin (Multivitamin) 1 Each Tablet 1 Tab PO DAILY Claritin (Loratadine) 10 Mg Tablet 10 Mg PO DAILY Colace (Docusate Sodium) 100 Mg Capsule 100 Mg PO DAILY Alendronate Sodium 70 Mg Tablet 70 Mg PO SA Mirtazapine 30 Mg Tablet 30 Mg PO HS Propylthiouracil 50 Mg Tablet 50 Mg PO BID Clonazepam 1 Mg Tablet 1 Mg PO HS Clonazepam 0.5 Mg Tablet 0.5 Mg PO DAILY Instructions to patient/family Please see electonic discharge instructions given to patient. Clinical Quality Measures DVT/VTE Risk/Contraindication: Risk Factor Score Per Nursin RFS Level Per Nursing on Admit: 4+=Very High NICOLE ROLON DO Jun 16, 2016 09:51
[2016-06-16] MEDS ORDERED: HYDR-3729 PO (09:54)
[2016-06-16] MEDS ORDERED: LACT20SO2 PO (09:54)
[2016-06-16] MEDS ORDERED: WHEE1EAC3 MC (10:28)
[2016-06-16 13:40] VITALS: BP 136/73
--- NOTE | 2016-07-11 13:07 | OPERATIVE REPORT ---
DATE OF SERVICE: 06/13/2016 SURGEON: Jim Banuelos DPM CARD RUNNER: None. PREOPERATIVE DIAGNOSES: Bimalleolar ankle fracture with syndesmotic instability of the right lower extremity. POSTOPERATIVE DIAGNOSIS: Bimalleolar ankle fracture with syndesmotic instability of the right lower extremity. PROCEDURE PERFORMED: Open reduction internal fixation of bimalleolar ankle fracture with syndesmotic stabilization of the right lower extremity. ANESTHESIA: General. HEMOSTASIS: Pneumatic thigh tourniquet 300 mmHg. BLOOD LOSS: 50 mL. MATERIALS USED: Synthes plates and screws, 3-0 Vicryl, 3-0 nylon. INTRAOPERATIVE INJECTABLES: 20 mL of 0.5% Marcaine plain. COMPLICATIONS: None. INDICATIONS FOR PROCEDURE: The patient is a 70-year-old female with history of a fall and a right ankle fracture. She is nonverbal and presents with her sister who is her [id number]. The patient and the sister were made aware of the risks and benefits of the surgery as well as the alternatives to undergoing it and the sister signed consent prior to be taken back to the OR. DESCRIPTION OF PROCEDURE: Under mild sedation, the patient was placed on the operating table in supine position. Upon administration of general anesthesia, a pneumatic thigh tourniquet was placed on the right lower extremity. The right lower extremity was scrubbed, prepped and draped in the aseptic manner. A proper timeout was performed. The right lower extremity was identified as the surgical site. Next, an approximately 8 cm incision was made in the lateral aspect of the distal fibula. The incision was deepened down to the level of the bone with care being taken to avoid all major neurovascular structures. All bleeders were cauterized and ligated as necessary. The fracture site was identified and a lateral plate was fixated with a combination of locking and nonlocking screws. There was adequate reduction of the fibula with maintaining the length, however, it was noted that there was severe osteoporosis of the distal fibula that was identified. The bone was very soft and denatured. Next, an approximately 6 cm incision was made in the medial aspect of the ankle over the medial malleolar fracture. The fracture was noted to be comminuted and exhibited extremely poor bone quality as well. The fracture was reduced as best possible with minimal trauma to the bone. It was reduced with traction with plate fixation. The plate was then fixated with a combination of locking and nonlocking screws and there was adequate reduction of the medial malleolar fracture. An interfragmentary screw was also placed from the distal tip of the medial malleolus up into the distal tibia. This allowed for some compression across the fracture fragments. Next, the ankle was put through a stress abduction external rotation exam and it was noted that there was syndesmotic instability seen, it was also identified visually that there was a tear of the anterior syndesmosis, thus the indication for a syndesmotic fixation was deemed necessary. Two 3.5 screws were placed across the syndesmosis, just proximal to the fibular fracture site and there was further reduction of the syndesmosis and an increased stability of the ankle joint. The wound was then flushed with copious amounts of sterile saline. Deep tissues were reapproximated and closed with 3-0 Vicryl, subcutaneous tissues were reapproximated with 3-0 Vicryl and the skin was reapproximated with the wound edges well aligned using 3-0 nylon. The right lower extremity was then dressed with a dry sterile dressing consisting of 4 x 4s, Webril and Cornelio wrap. The patient tolerated the procedure and anesthesia well. She was transferred from the OR to recovery with vital signs stable and neurovascular status intact to the right lower extremity. Job ID: [id number] DocumentID: [id number] Dictated Date: 07/11/2016 09:45:41 Clinical Trial Specialist Date: 07/11/2016 13:06:37 Dictated By: JIM BANUELOS DPM
== END 2016-06-16 13:40 | disposition home health service (06) | DRG 493 ==
LOC: EDUNIT# 14:24 → ER 14:26 → 4TH 16:46
PROVIDERS: ADMIT Internal Medicine; ATTEND Internal Medicine
PROC: 0QSG04Z Reposition Right Tibia with Internal Fixation Device, Open Approach (ICD-10-PCS; 2016-06-13)
PROC: 0SSF04Z Reposition Right Ankle Joint with Internal Fixation Device, Open Approach (ICD-10-PCS; 2016-06-13)
PROC: 0QSJ04Z Reposition Right Fibula with Internal Fixation Device, Open Approach (ICD-10-PCS; principal; 2016-06-13 14:38)
DX: M80.071A Age-related osteoporosis with current pathological fracture, right ankle and foot, initial encounter for fracture (principal); S93.401A Sprain of unspecified ligament of right ankle, initial encounter; F72 Severe intellectual disabilities; F41.9 Anxiety disorder, unspecified; K59.00 Constipation, unspecified; E05.90 Thyrotoxicosis, unspecified without thyrotoxic crisis or storm; W05.0XXA Fall from non-moving wheelchair, initial encounter; Y92.009 Unspecified place in unspecified non-institutional (private) residence as the place of occurrence of the external cause
CPT/HCPCS: 29515; 36415; 73610; 80053; 85007; 85025; 85027; 87081; 96372; 96374

== ENCOUNTER → 2016-06-12 | Outpatient (CLI) | payer MEDICARE, MEDICAID ==
[~2016-06-12] MED LIST: ACET325T38 PO; ACHD5005 PO; ALBU2.5V4 NEB; ALEN70TA47 PO; CA C1TAB80 PO; CARB15DR87 EACH EAR; CHLO473M4 MM; CLON0.5T3 PO; CLON1TAB3 PO; DOCU-143 PO; GUAI480S5 PO; HYDR-3729 PO; HYDR28CR45 TP; IBUP-30 PO; LACT20SO2 PO; LOPE-134 PO; LORA10TA76 PO; MAGN400O7 PO; MENT1LOZ4 MM; MIRT30TA6 PO; MULT-35 PO; NEOM28OI TP; POLY17PO6 PO; PROP50TA2 PO; SALI325S2 TP; TETR15DR74 OU; WHEE1EAC3 MC
--- NOTE | 2016-06-12 14:45 | Diagnostic Imaging Report ---
INDICATION: Right foot pain. AP, oblique, and lateral views of the right foot are obtained. See separate dictation for right ankle. There is osteopenia. There is degenerative change of the first MTP joint. There is no acute fracture of the bones of the foot. There is a fracture of the ankle, see separate dictation. IMPRESSION: Osteopenia. No acute fracture of the right foot. There are fractures of the right ankle, see separate dictation. Dictated by: Dictated on workstation # [id number]
--- NOTE | 2016-06-12 16:06 | Diagnostic Imaging Report ---
EXAMINATION: 3 views of the right ankle. INDICATION: Fall. FINDINGS: There is a mildly displaced and angulated fracture of the distal fibula with intra-articular extension to the ankle joint and a gap of 5 mm in the distal fibula. There is a nondisplaced transverse fractures through the distal tibia and the base of the medial malleolus. There is minimal comminution with the distal tibial fracture involving the posterior malleolus. There is no significant subluxation or dislocation. Significant soft tissue swelling medially is seen. IMPRESSION: Fractures of the distal tibia and fibula with angulation and the minimal displacement in the distal fibula. The findings were called to nurse practitioner taking care of the patient Ms. Yessy Merino at the time of dictation. Dictated by: Dictated on workstation # [id number]
== END ==
LOC: RAD 13:16
PROVIDERS: ATTEND Family Medicine
DX: S82.831A Other fracture of upper and lower end of right fibula, initial encounter for closed fracture (principal); S82.224A Nondisplaced transverse fracture of shaft of right tibia, initial encounter for closed fracture; X58.XXXA Exposure to other specified factors, initial encounter; Y99.8 Other external cause status
CPT/HCPCS: 73610; 73630

== ENCOUNTER → 2016-08-13 | Outpatient (CLI) | payer MEDICARE, MEDICAID ==
[~2016-08-13] MED LIST changes: +ACET325T38 PO; +ALBU2.5V4 NEB; +ALEN70TA47 PO; +CA C1TAB80 PO; +CARB15DR87 EACH EAR; +CHLO473M4 MM; +CLON0.5T3 PO; +CLON1TAB3 PO; +DOCU-143 PO; +GUAI480S5 PO; +HYDR-3729 PO; +HYDR28CR45 TP; +IBUP-30 PO; +LACT20SO2 PO; +LOPE-134 PO; +LORA10TA76 PO; +MAGN400O7 PO; +MENT1LOZ4 MM; +MIRT30TA6 PO; +MULT-35 PO; +NEOM28OI TP; +POLY17PO6 PO; +PROP50TA2 PO; +SALI325S2 TP; +TETR15DR74 OU; +WHEE1EAC3 MC
== END ==
DX: S82.301D Unspecified fracture of lower end of right tibia, subsequent encounter for closed fracture with routine healing (principal); S52.601D Unspecified fracture of lower end of right ulna, subsequent encounter for closed fracture with routine healing; M85.871 Other specified disorders of bone density and structure, right ankle and foot; X58.XXXA Exposure to other specified factors, initial encounter; Y99.8 Other external cause status

== ENCOUNTER → 2016-10-31 | Outpatient (CLI) | payer MEDICARE, MEDICAID ==
--- NOTE | 2016-11-06 20:31 | Diagnostic Imaging Report ---
Bilateral screening mammogram 2D views. The current study was also evaluated with a Computer Aided Detection (CAD) system. INDICATION: Screening. No current complaints stated on the questionnaire. COMPARISON: 11/17/14 FINDINGS: The wood technologist notes indicate that the patient is mentally challenged and this explains suboptimal positioning and lack of adequate visualization of the pectoralis muscle on the MLO views, particularly on the left side. When compared to prior exam of 11/17/14, heterogeneously dense parenchyma particularly within the periareolar region is again noted with punctate calcifications. No mass, architectural distortion or suspicious cluster of calcification is identified. IMPRESSION: No mammographic evidence of malignancy. ACR BI-RADS Category 2: Benign findings. Result letter will be mailed to the patient. Note: At least 10% of breast cancer is not imaged by mammography. Dictated by: Dictated on workstation # [id number]
== END ==
LOC: RAD 13:19
PROVIDERS: ATTEND Nurse Practitioner Family
DX: Z12.31 Encounter for screening mammogram for malignant neoplasm of breast (principal)
CPT/HCPCS: 77067

== ENCOUNTER → 2018-10-05 | Outpatient (CLI) | payer MEDICARE, MEDICAID ==
[~2018-10-05] MED LIST changes: -ALEN70TA47 PO; +ALEN70TA5 PO; -CA C1TAB80 PO; +CLON0.5T13 PO; -CLON0.5T3 PO; +CLON1TAB13 PO; -CLON1TAB3 PO; +VIACTIV SOFT C1 EAC1 PO
--- NOTE | 2018-10-05 11:33 | Diagnostic Imaging Report ---
INDICATION: Screening for osteoporosis, postmenopausal state. COMPARISON: None available. FINDINGS: AP Spine L1-L4: [BMD (g/cm2): 0.864] [T-Score: -2.8] [Z-Score: -3.6] [BMD Previous: NA] [BMD % Change: NA] LT Hip Neck: [BMD (g/cm2): 0.571] [T-Score: -3.4] [Z-Score: -1.5] LT Hip Total: [BMD (g/cm2):0.583] [T-Score:-3.4] [Z-Score: -1.7] [BMD Previous: NA] [BMD % Change: NA] RT Hip Neck: [BMD (g/cm2):NA] [T-Score:NA] [Z-Score:NA] RT Hip Total: [BMD (g/cm2):NA] [T-score:NA] [Z-Score:NA] [BMD Previous:NA] [BMD % Change:NA] *Indicates significant change from prior examination based on 95% confidence level. World Health Organization criteria for BMD interpretation classify patients as Normal (T-score at or above -1.0), Osteopenic (T-score between -1.0 and -2.5) or Osteoporotic (T-score at or below -2.5). LIMITATIONS AND MODIFICATION: None. FRACTURE RISK (FRAX SCORE): The ten year probability of (%): Major Osteoporotic Fracture: [24.2] Hip Fracture: [10.3] IMPRESSION: 1. Osteoporosis. 2. Baseline examination. 3. See below National Osteoporosis Foundation guidelines on when to potentially initiate pharmacologic therapy. Based on the National Osteoporosis Foundation Guidelines, pharmacologic treatment should be initiated in any of the following, unless clinical conditions suggest otherwise: * Any patient with prior fragility fracture of the hip or vertebrae. A spine fracture indicates 5X risk for subsequent spine fracture and 2X risk for subsequent hip fracture. * Osteoporosis (T-score <-2.5). * Postmenopausal women and men age 50 and older with low bone mass/osteopenia (T-score between -1.0 and -2.5) by DXA and 10-year major osteoporotic fracture greater than 20% or a 10-year probability of hip fracture greater than 3%. These fracture risks are supplied above in the FRAX score, if applicable. * Clinician judgement and/or patient preferences may indicate treatment for people with 10-year fracture probabilities above or below these levels. Dictated by: Dictated on workstation # [id number]
== END ==
LOC: RAD 09:57
PROVIDERS: ATTEND Family Medicine
DX: M81.0 Age-related osteoporosis without current pathological fracture (principal); Z78.0 Asymptomatic menopausal state
CPT/HCPCS: 77080